=== PATIENT | male | born 1975 | race African-American/Black ===

== ENCOUNTER 2021-06-21 11:32 | Emergency (ER) | payer OTHER ==
[~2021-06-21] VITALS: Ht 182.9 cm; Wt 102.8 kg
[2021-06-21 15:22] LABS: HEMATOCRIT 47.8 % (42.0-52.0); HEMOGLOBIN 15.4 g/dl (13.5-17.5); MEAN CORPUSCULAR HEMOGLOBIN 28.8 pg (27.0-33.0); MEAN CORPUSCULAR HGB CONC 32.2 g/dl (32.0-36.5); MEAN CORPUSCULAR VOLUME 89.5 fl (80.0-96.0); PLATELET COUNT, AUTOMATED 173 10^3/uL (150-450); RED BLOOD COUNT 5.34 10^6/uL (4.30-6.10); WHITE BLOOD COUNT 8.8 10^3/uL (4.0-10.0)
[2021-06-21 15:52] LABS: BASOPHILS 1 % (0-1); LYMPHOCYTES 45 % (16-44); MONOCYTES 11 % (0-5); NEUTROPHILS 43 % (28-66); PLATELET ESTIMATE NORMAL (NORMAL)
[2021-06-21 15:54] LABS: BLOOD UREA NITROGEN 12 MG/DL (7-18); CALCIUM LEVEL 8.8 MG/DL (8.5-10.1); CARBON DIOXIDE LEVEL 25 MEQ/L (21-32); CHLORIDE LEVEL 111 MEQ/L (98-107); CREATININE FOR GFR 1.12 MG/DL (0.70-1.30); GLOMERULAR FILTRATION RATE > 60.0 (>60); GLUCOSE, FASTING 83 MG/DL (70-100); SODIUM LEVEL 143 MEQ/L (136-145)
[2021-06-21] MEDS ORDERED: ISOVUE-370 76% 100ML VIAL As Ordered ONE (15:58)
--- NOTE | 2021-06-21 16:51 | REPVR ---
PROCEDURE INFORMATION: Exam: CT Neck With Contrast Exam date and time: 06/21/2021 4:04 PM Age: 46 years old Clinical indication: Mass, lump, or swelling in neck; Right; Additional info: Mass, right lateral neck, eval for deep space infection, lym TECHNIQUE: Imaging protocol: Computed tomography images of the neck with contrast. Radiation optimization: All CT scans at this facility use at least one of these dose optimization techniques: automated exposure control; mA and/or kV adjustment per patient size (includes targeted exams where dose is matched to clinical indication); or iterative reconstruction. Contrast material: ISOVUE 370; Contrast volume: 75 ml; Contrast route: INTRAVENOUS (IV); COMPARISON: No relevant prior studies available. FINDINGS: Clear apical portions of the lung. There is a large mass in the right side of the neck measuring 5.4 cm transverse, 3.1 cm AP and 7 cm in craniocaudal length. This is between the right carotid bifurcation and hypopharynx with severe impression on the hypopharynx. This mass is also posterior to the hypopharynx and laryngeal cartilage. This is all uniformly intermediate in density and may be solid or proteinaceous fluid. This right mass could be benign or malignant. Lymphatic malformation, lymphoma, sarcoma are all considerations. There is no peripheral enhancement to suggest abscess. The apical portions of the lung appear clear. IMPRESSION: 7 cm x 5.4 cm x 3 cm oval mass uniform in density between the right carotid bifurcation and hypopharynx. This causes severe impression on the right hypopharynx and extending posterior to the laryngeal cartilage. Considerations include lymphatic malformation, lymphoma, sarcoma. Electronically signed by: Jason Marie On 06/21/2021 16:51:11 PM
[2021-06-21 17:46] VITALS: BP 143/89
--- NOTE | 2021-06-21 19:46 | ED PDOC ---
Post-Departure Follow-Up ct neck faxed to dr [email or web address] for fu Luz Donahue MD Jun 21, 2021 19:46
== END 2021-06-21 17:50 | disposition home or self-care (01) ==
LOC: M ED 11:32
DX: R22.1 Localized swelling, mass and lump, neck (principal)
CPT/HCPCS: 70491; 80048; 85025; 99283; Q9967; U0002

== ENCOUNTER → 2021-06-23 | Outpatient (CLI) | payer OTHER ==
[~2021-06-23] MED LIST: PROHANCE 279.3MG/ML 15ML VIAL ONE; PROHANCE 279.3MG/ML 5ML VIAL ONE
== END ==
LOC: M PLAIMG 13:06
PROVIDERS: ATTEND Otolaryngology
DX: R22.1 Localized swelling, mass and lump, neck (principal)
CPT/HCPCS: 70543; A9576

== ENCOUNTER → 2021-07-16 | Outpatient (CLI) | payer OTHER ==
[~2021-07-16] MED LIST changes: +LIDOCAINE 1% MDV 20ML VIAL As Ordered ONE; -PROHANCE 279.3MG/ML 15ML VIAL ONE; -PROHANCE 279.3MG/ML 5ML VIAL ONE
[2021-07-16 09:00] VITALS: BP 139/82
== END ==
LOC: M IRPRO 08:05
PROVIDERS: ATTEND Otolaryngology
DX: R22.1 Localized swelling, mass and lump, neck (principal)

== ENCOUNTER → 2022-03-23 | Outpatient (REF) | LOC: M RAD 09:35 | PROVIDERS: ATTEND Physician Assistant Medical | DX: M25.541 Pain in joints of right hand (principal) ==